=== PATIENT | male | born 1985 | race Caucasian/White ===

== ENCOUNTER 2019-09-27 06:58 | Emergency (ER) | payer OTHER ==
[~2019-09-27] VITALS: Ht 182.9 cm; Wt 92.1 kg
--- NOTE | 2019-09-27 07:00 | NUR ---
WENT TO BATHROOM Addendum: 09/27/19 at 0701 by [email or web address] FLATBED DRIVER: PT WENT TO BATHROOM
[2019-09-27 07:16] VITALS: BP 145/91
--- NOTE | 2019-09-27 07:21 | NUR ---
Provider at bedside. Rectal exam performed, pt tolerated well. Lab work to be completed. pt denies needs at this time. Call light wtihin reach.
[2019-09-27 07:41] LABS: BASOPHILS # (AUTO) 0.03 x10^3/uL (0-0.1); BASOPHILS % (AUTO) 1 % (0-1); EOSINOPHILS # (AUTO) 0.12 x10^3/uL (0-0.4); EOSINOPHILS % (AUTO) 3 % (1-7); LYMPHOCYTES # (AUTO) 1.45 x10^3/uL (1-3.4); LYMPHOCYTES % (AUTO) 33 % (22-44); MD NO; MEAN CORPUSCULAR HEMOGLOBIN 31.1 pg (27.5-34.5); MEAN CORPUSCULAR VOLUME 94.1 fL (81-97); MEAN PLATELET VOLUME 8.3 fL (7.4-10.4); MONOCYTES # (AUTO) 0.38 x10^3/uL (0.2-0.8); MONOCYTES % (AUTO) 9 % (2-9); NEUTROPHILS # (AUTO) 2.44 x10^3/uL (1.8-6.8); NEUTROPHILS % (AUTO) 55 % (42-75); PLATELET COUNT 189 x10^3/uL (130-400); RED BLOOD COUNT 5.24 x10^6/uL (4.38-5.82); RED CELL DISTRIBUTION WIDTH 12.9 % (9.4-14.8)
[2019-09-27 07:54] LABS: ALANINE AMINOTRANSFERASE 25 U/L (12-78); ALBUMIN 4.1 g/dL (3.4-5.0); ANION GAP 6 mmol/L (5-15); CALCIUM 8.7 mg/dL (8.5-10.1); CHLORIDE 105 mmol/L (98-107); CREATININE 1.09 mg/dL (0.7-1.3)
[2019-09-27 07:56] LABS: ALKALINE PHOSPHATASE 59 U/L (45-117); BILIRUBIN,TOTAL 0.7 mg/dL (0.2-1.0); TOTAL PROTEIN 7.2 g/dL (6.4-8.2)
--- NOTE | 2019-09-27 08:21 | NUR ---
Patient given discharge instructions and they have confirmed that they understand the instructions. Patient ambulatory with steady gait.
== END 2019-09-27 08:22 | disposition home or self-care (01) ==
LOC: ED 07:57
DX: K64.9 Unspecified hemorrhoids (principal)
CPT/HCPCS: 36415; 80053; 85025; 99283